=== PATIENT | male | born 1965 | race Caucasian/White ===

== ENCOUNTER 2020-07-31 10:40 | Emergency (ER) | payer BC, SELFPAY ==
[2020-07-31 10:55] VITALS: BP 152/100; PULSE 98; RESP 16; TEMP 36.9; O2SAT 98
--- NOTE | 2020-07-31 11:19 | ED.URI ---
HPI - URI/Sore Throat General Chief Complaint: Upper Respiratory Infection Stated Complaint: CONGESTION/SNEEZING/COUGH Source: patient and RN notes reviewed Limitations: no limitations History of Present Illness HPI Narrative: The overweight patient, a non-smoker/nondrinker, presents with 1/2-week history of congestion and cough. No fever, earache, sputum changes, loss of taste/smell, S OB, sneezing/wheezing, chest pains, travel or Covid exposure now. Symptoms are mild, worse at nighttime. He comments he declines Covid testing, as he believes he had a last year over the holidays, [when some of his family members tested positive]. His has had an inhaler in the past and he would like one also. Related Data Home Medications Medication Instructions Recorded Confirmed lisinopril-hydrochlorothiazide tablet 07/31/20 Allergies Allergy/AdvReac Type Severity Reaction Status Date / Time No Known Allergies Allergy Unverified 12/30/18 14:24 Review of Systems Review of Systems: Narrative: General/Constitutional: No weight loss,fever Eyes: N0: Redness,discharge Ears/Nose/Throat: No: Epistaxis,ear discharge Respiratory: Denies: Hemoptysis Gastrointestinal: No Vomiting, Bleeding-rectal Skin: No Lumps, eruption Neurologic: No Focal Weakness,Sz Hematologic: Denies: Petechiae/Purpura Psychiatric: No: Suicida ideationl All Other Systems: Reviewed and Negative [facility] Comments At time of signature, agree with nursing past medical, surgical, social and family history. There is no relevant family history pertinent to the presenting complaint Exam Narrative: Exam Narrative: General Appearance: Well appearing, , Conjunctiva clear Ears: Auditory canal normal, TM normal Nose: Rhinorrhea, Mucousal erythema Mouth/Throat: MM moist, Uvula midline, Pharyngeal erythema Neck: Supple, No adenopathy Respiratory: No respiratory distress, airway patent Cardiovascular: RRR, No JVD Musculoskeletal: Non tender, Normal strength Skin: Warm, Dry Neurological: A&O x3, CN II-XII intact Psychiatric: Normal mood, Normal affect Course Vital Signs Vital signs: Vital Signs Temperature 98.4 F 07/31/20 10:55 Pulse Rate 98 07/31/20 10:55 Respiratory Rate 16 07/31/20 10:55 Blood Pressure 152/100 H 07/31/20 10:55 Pulse Oximetry 98 07/31/20 10:55 Temperature 98.4 F 07/31/20 10:55 Pulse Rate 98 07/31/20 10:55 Respiratory Rate 16 07/31/20 10:55 Blood Pressure 152/100 H 07/31/20 10:55 Pulse Oximetry 98 07/31/20 10:55 Discharge Plan Discharge Clinical Impression: URI (upper respiratory infection) Qualifiers: URI type: unspecified URI Qualified Code(s): J06.9 - Acute upper respiratory infection, unspecified Patient Disposition: Home, Self-Care Condition: Stable Instructions: Antibiotic Form, Acute Bronchitis (ED) Prescriptions: New codeine-guaifenesin 10-100 mg/5 mL liquid 7.5 ml PO Q6H PRN (Reason: cough) Qty: 118 RF: 0 azelastine 137 mcg (0.1 %) aerosol,spray 137 mcg NASAL Q12H Qty: 30 RF: 0 benzonatate [Tessalon Perles] 100 mg capsule 100 mg PO TID Qty: 20 RF: 1 albuterol sulfate [Ventolin HFA] 90 mcg/actuation HFA aerosol inhaler 2 puff INHALATION QID PRN (Reason: shortness of breath or wheezing) Qty: 8.5 RF: 1 azithromycin 250 mg tablet See Rx Instructions .ROUTE .COMPLEX Qty: 6 RF: 0 No Action lisinopril-hydrochlorothiazide 20-12.5 mg tablet RF: 0 Follow-up/Referrals: Deshawn Dixon MD [Other]
== END 2020-07-31 11:29 | disposition home or self-care (01) ==
PROVIDERS: Emergency Provider Emergency Medicine
DX: J06.9 Acute upper respiratory infection, unspecified (principal); I10 Essential (primary) hypertension
CPT/HCPCS: 99213; G0463

== ENCOUNTER 2021-09-01 16:42 | Emergency (ER) | payer OTHER, SELFPAY ==
--- NOTE | 2021-09-01 16:46 | ED.URI ---
HPI - URI/Sore Throat General Chief Complaint: Asthma Stated Complaint: ASTHMA Time Seen by Provider: 09/01/21 16:43 Source: patient Mode of arrival: ambulatory Limitations: no limitations History of Present Illness HPI Narrative: Mr. Bolden is a 56-year-old male patient presenting to the clinic today with complaints of possible asthma. He reports he has had some issues with cough and breathing since he has had Covid back in 2019. Has had cough and mild shortness of breath for a couple weeks now. Has nasal drainage off and on. Reports back in February he was having the symptoms and seeing his primary care provider and was given an inhaler and oral steroids and this helped. States at times the cough is productive with clear phlegm. Cough is keeping him up at night and he has a difficult time taking a deep breath. Has noted some wheezing. No history of COPD or asthma. Patient is a non-smoker. No work related contributing factors such as asbestos or dust. States he just use his albuterol inhaler prior to coming in and this has helped some-but only helps for approximately 3 hours and then symptoms return. MD elicited complaint: cough Related Data Home Medications Medication Instructions Recorded Confirmed lisinopril-hydrochlorothiazide tablet 07/31/20 Allergies Allergy/AdvReac Type Severity Reaction Status Date / Time No Known Allergies Allergy Unverified 12/30/18 14:24 Review of Systems Review of Systems: Pertinent positives per HPI. Patient denies any fever, chills, rash, headache, visual changes, dizziness, sore throat, chest pain, palpitations, nausea, vomiting, diarrhea, constipation, abdominal pain, or any urinary issues. PM[facility] Comments At the time of my signature, I reviewed and agree with the nursing past medical, surgical, social, and family history. There is no relevant family history pertinent to the patient complaint. Exam Narrative: General: Well-developed, overweight, in no apparent distress Head: Normocephalic, atraumatic Eyes: Pupils equally round and reactive to light bilaterally, EOM intact, sclera and conjunctive clear, no discharge, lids normal Ears: TMs intact and clear, ear canals clear, no drainage, grossly hearing normal. Nose: Nares patent, no discharge, no inflammation, no sinus tenderness. Mouth: Oral pharynx without lesions or masses, good dentition, MMM. Neck: Supple, trachea midline, no enlargement of anterior or posterior cervical nodes, no thyroid masses or goiter palpable. Cardio: Regular rate and rhythm, s1 and s2 normal, no murmur appreciated. Resp: Lung sounds diminished in the bases with faint expiratory wheezing Course Course Emergency Course: Portions of this record may have been created with voice recognition software. Level of Care: Express Care Visit Vital Signs Vital signs: Vital Signs Temperature 36.6 C 09/01/21 16:48 Pulse Rate 110 H 09/01/21 16:48 Respiratory Rate 18 09/01/21 16:48 Blood Pressure 142/99 H 09/01/21 16:48 Pulse Oximetry 99 09/01/21 16:48 Temperature 36.6 C 09/01/21 16:48 Pulse Rate 110 H 09/01/21 16:48 Respiratory Rate 18 09/01/21 16:48 Blood Pressure 142/99 H 09/01/21 16:48 Pulse Oximetry 99 09/01/21 16:48 Vital signs reviewed MDM - URI/Sore Throat MDM Narrative Medical decision making narrative: Lung sounds were diminished with faint wheezing. No crackles or rhonchi heard. Suspect bronchitis. Will treat with round of prednisone, albuterol inhaler, and Tessalon Perles to take at nighttime. If symptoms persist after treatment discussed needing an x-ray and a pulmonary function test. Recommend he follow-up with his PCP for these. Differential Diagnosis Differential diagnosis: Likely sinusitis, viral infection, influenza and pharyngitis Discharge Plan Discharge Clinical Impression: Bronchitis Patient Disposition: Home, Self-Care Condition: Stable Instructions: Acute Bronchitis (ED) Add
[2021-09-01 16:48] VITALS: BP 142/99; PULSE 110; RESP 18; TEMP 36.6; O2SAT 99
== END 2021-09-01 17:12 | disposition home or self-care (01) ==
PROVIDERS: Emergency Provider Nurse Practitioner Family
DX: J40 Bronchitis, not specified as acute or chronic (principal); I10 Essential (primary) hypertension
CPT/HCPCS: 99213; G0463

== ENCOUNTER 2022-06-07 15:45 | Emergency (ER) | payer OTHER, SELFPAY ==
--- NOTE | 2022-06-07 16:14 | ED.URI ---
HPI - URI/Sore Throat General Chief Complaint: Upper Respiratory Infection Stated Complaint: sore throat Time Seen by Provider: 06/07/22 16:14 Source: patient, RN notes reviewed and old records reviewed Mode of arrival: ambulatory Limitations: no limitations History of Present Illness HPI Narrative: 57-year-old male presents to the [facility] with complaints of a sore throat, sinus congestion for the last 10 days these. Patient denies any fevers, chest pain, abdominal pain. Has been taking Sudafed with minimal relief Related Data Home Medications Medication Instructions Recorded Confirmed lisinopril 20 1 tablet PO DAILY 07/31/20 06/07/22 mg-hydrochlorothiazide 12.5 mg tablet Allergies Allergy/AdvReac Type Severity Reaction Status Date / Time No Known Allergies Allergy Verified 06/07/22 16:00 Review of Systems Review of Systems: All systems reviewed & are unremarkable except as noted in HPI and below Constitutional: Constitutional: Reports no additional constitutional complaints Eyes: Eyes: Reports no additional eye complaints ENT: Reports as per HPI and Reports nasal congestion Cardiovascular: Cardiovascular: Reports no additional cardiovascular complaints, Denies chest pain and Denies dyspnea Respiratory: Respiratory: Reports no additional respiratory complaints, Denies chest congestion, Denies cough and Denies dyspnea Gastrointestinal: Gastrointestinal: Reports no additional gastrointestinal complaints, Denies abdominal pain, Denies nausea and Denies vomiting Musculoskeletal: Musculoskeletal: Reports no additional musculoskeletal complaints Integumentary/Breasts: Skin/Breast: Reports system reviewed and no additional complaints, except as docu Neurologic: Reports system reviewed and no additional complaints, except as documented Psychiatric: Psychiatric: Reports no additional psychiatric complaints Allergic/Immunologic: Allergic/Immunologic: Reports no additional allergic/immunologic complaints PMFSH Past Medical History Medical History (Updated 06/07/22 @ 16:36 by Delphine Acevedo APRN) History of high blood pressure Comments At the time of my signature, I reviewed and agree with the nursing past medical, surgical, social, and family history. There is no relevant family history pertinent to the patient complaint. Exam Const: General: cooperative, healthy appearing, comfortable, no acute distress, well developed, alert and well nourished Nutritional Appearance: well nourished Orientation/consciousness: patient oriented x3 Limitations: no limitations HENMT: Head: normal to inspection Ears: hearing grossly normal bilaterally and external ears normal Face/Nose/Sinus: Normal external nose present, Normal nares present, Normal nasal mucous membranes and turbinates present and normal facial exam Face and sinus: normal facial exam Mouth: Yes Normal oral and palatal mucosa present, Yes lip normal and Yes moist mucous membranes Throat: posterior oropharynx normal and uvula midline Eyes: General: appearance normal, both eyes and all related structures Alignment and Position: alignment normal Periorbital: periorbital findings normal Conjunctivae: conjunctivae normal Pupils: Equal, round and reactive pupils present EOM: EOMs intact bilaterally Neck: Neck: normal visual inspection, full ROM, no lymphadenopathy and no meningeal signs Chest: Chest palpation & inspection: normal inspection of the chest Resp: Effort & Inspection: normal respiratory effort and able to speak in complete sentences Auscultation: clear to auscultation bilaterally, no crackles, no rales, no rhonchi and no wheezes Cardio: Rate: regular rate Rhythm: regular rhythm Back/Spine/Pelvis: Cervical Spine: cervical ROM normal Thoracic/Lumbar Spine: No thoracic spinal tenderness Skin: General skin exam: normal color and no rashes or lesions noted Lesions: no lesions Rashes: no rashes Wounds: no wounds Neuro: General: pat
[2022-06-07 16:15] VITALS: BP 149/89; PULSE 94; RESP 16; TEMP 36.3; O2SAT 99
== END 2022-06-07 16:34 | disposition home or self-care (01) ==
PROVIDERS: Emergency Provider Nurse Practitioner
DX: J32.9 Chronic sinusitis, unspecified (principal); I10 Essential (primary) hypertension
CPT/HCPCS: 99213; G0463

== ENCOUNTER 2022-09-05 17:04 | Emergency (ER) | payer OTHER, SELFPAY ==
--- NOTE | ~2022-09-05 | XR_ITS ---
EXAMINATION: XR chest 2V Exam Date/Time: 09/05/2022 17:20 CDT HISTORY: COUGH X 3 WEEKS Comparison: None available. RESULT: Lines, tubes, and devices: None. Lungs and pleura: Clear. Cardiomediastinal silhouette: Unremarkable. Other: No acute osseous or upper abdominal finding. IMPRESSION: No acute cardiopulmonary process. Reviewed, dictated and finalized at location K.
[2022-09-05 17:09] VITALS: BP 122/79; PULSE 80; RESP 16; TEMP 36.2; O2SAT 99
--- NOTE | 2022-09-05 17:15 | ED.URI ---
HPI - URI/Sore Throat General Chief Complaint: Upper Respiratory Infection Stated Complaint: Cough Time Seen by Provider: 09/05/22 17:08 Source: patient Mode of arrival: ambulatory Limitations: no limitations History of Present Illness HPI Narrative: patient is a 49-year-old male that presents with cough for 3 weeks. Also reports some runny nose but states that is his normal for allergies. has tried multiple expectorants [id number] with no relief. States cough is intermittently productive. Denies any fever, nasal congestion, ear pain, sore throat. uses his albuterol inhaler multiple times a day with no relief. Related Data Home Medications Medication Instructions Recorded Confirmed lisinopril 20 1 tablet PO DAILY 07/31/20 09/05/22 mg-hydrochlorothiazide 12.5 mg tablet Allergies Allergy/AdvReac Type Severity Reaction Status Date / Time No Known Allergies Allergy Verified 09/05/22 17:09 Review of Systems Review of Systems: All systems reviewed & are unremarkable except as noted in HPI and below Constitutional: Constitutional: Denies body ache(s), Denies fever(s), Denies headache(s), Denies malaise and Denies weakness Eyes: Eyes: Denies loss of vision ENT: Denies otalgia, Denies headache(s), Denies nasal congestion, Denies sinus pain and Denies sore throat Cardiovascular: Cardiovascular: Denies chest pain, Denies irregular heart rhythm and Denies dyspnea Respiratory: Respiratory: Reports cough and Denies dyspnea Gastrointestinal: Gastrointestinal: Denies abdominal pain, Denies melena, Denies hematochezia, Denies diarrhea, Denies nausea and Denies vomiting Musculoskeletal: Musculoskeletal: Denies back pain, Denies myalgias and Denies arthralgias Integumentary/Breasts: Skin/Breast: Denies pruritus and Denies rash Neurologic: Denies headache(s), Denies loss of vision and Denies weakness Psychiatric: Psychiatric: Reports no additional psychiatric complaints PMFSH Past Medical History Medical History (Updated 09/05/22 @ 17:28 by Destini Camacho APRN) History of high blood pressure Comments At time of signature, agree with nursing past medical, surgical, social and family history. There is no relevant family history pertinent to the presenting complaint. Exam Const: General: cooperative, healthy appearing, comfortable, no acute distress and well nourished Nutritional Appearance: well nourished Orientation/consciousness: patient oriented x3 Limitations: no limitations HENMT: Head: normal to inspection, normocephalic and atraumatic Ears: external ears normal and TM's normal bilaterally Face/Nose/Sinus: Normal external nose present, normal facial exam, sinuses nontender and face symmetric Face and sinus: normal facial exam, sinuses nontender and face symmetric Mouth: Yes Normal oral and palatal mucosa present, Yes lip normal and Yes moist mucous membranes Teeth and gingiva: dentition normal Throat: posterior oropharynx normal, tonsils normal and uvula midline Eyes: General: appearance normal, both eyes and all related structures Alignment and Position: alignment normal and position normal Periorbital: periorbital findings normal Eyelids: eyelids normal Pupils: Equal, round and reactive pupils present Neck: Neck: normal visual inspection, full ROM and supple Chest: Chest palpation & inspection: normal inspection of the chest and normal palpation of entire chest wall Resp: Effort & Inspection: normal respiratory effort and able to speak in complete sentences Auscultation: no crackles, no rales, no rhonchi and wheezes expiratory wheezes, inspiratory wheezes and throughout Cardio: Rate: regular rate Rhythm: regular rhythm Heart sounds: S1 normal heart sound present and S2 normal heart sound present GI: Inspection: normal to inspection Skin: General skin exam: normal color and no rashes or lesions noted Neuro: General: patient oriented x3 and moves all extremities Cranial nerves
[2022-09-05 17:20] VITALS: PULSE 80; RESP 16; O2SAT 99
[2022-09-05] MEDS: ALBUTEROL SULFATE NEB 2.5 MG/3 ML INH INHALATION (17:35)
[2022-09-05] MEDS: IPRATROPIUM BR 0.02% INH SOLN 0.5 MG/2.5 ML VIAL INHALATION (17:35)
== END 2022-09-05 18:37 | disposition home or self-care (01) ==
PROVIDERS: Emergency Provider Nurse Practitioner Family
DX: R05.9 Cough, unspecified (principal); R06.2 Wheezing; I10 Essential (primary) hypertension
CPT/HCPCS: 71046; 94640; 99213; G0463

== ENCOUNTER 2022-11-16 08:49 | Outpatient (CLI) | payer OTHER, SELFPAY ==
--- NOTE | 2022-11-17 15:25 | WPDPFTINT ---
PFT Procedure Performed PFT Procedure Performed Spirometry with Pre/Post Bronchodilator Plethysmography (Lung Vol) Diffusing Cap (DLCO) Flow Vol Loop PFT Interpretation Lung volumes were measured with the body plethysmography method. Lung volumes are unremarkable. Spirometry showed normal expiratory flow rates and a normal FEV1 to FVC ratio 71%. Following administration of a bronchodilator there was no significant increase in expiratory flow rates. Lung diffusion capacity is high at 130% predicted. The flow volume loop is unremarkable. Impression. Spirometry and lung volumes within the normal range. Relatively high lung diffusion capacity.
== END 2022-11-16 08:50 | disposition home or self-care (01) ==
LOC: ANHPFT 08:51
PROVIDERS: PCP Nurse Practitioner Family; Visit Provider Physician Assistant
DX: R05.9 Cough, unspecified (principal); R06.09 Other forms of dyspnea
CPT/HCPCS: 94060; 94726; 94729